=== PATIENT | male | born 1970 | race Caucasian/White ===

== ENCOUNTER 2017-10-19 12:42 | Outpatient (CLI) | payer BC, OTHER ==
--- NOTE | 2017-10-19 15:01 | CT ---
NONCONTRAST ENHANCED CT IMAGES ABDOMEN AND PELVIS: HISTORY: Patient with low abdominal pain, R10.30. FINDINGS: Noncontrast enhanced CT images of the abdomen and pelvis were obtained. There is a tiny approximately 3 mm nodular density seen in the right middle lobe of the lung base. The liver and spleen are unremarkable. The gallbladder and pancreas are unremarkable. Adrenal gland s unremarkable. There is minimal dilatation of the right ureter with an approximately 2 mm tiny uret eral calculus seen on coronal image #85. The lesion is difficult to visualize on the axial images. The left kidney and collecting system is unremarkable. There is an approximately 1.3 cm area of defect in the region of the umbilicus compatible with tiny u mbilical hernia. No evidence of small bowel herniation seen. Descending and sigmoid colonic diverticulosis is present. A normal appendix is seen. Multilevel lower lumbar degenerative changes seen. There is a subchondral cyst on the lateral aspect of the right acetabulum. IMPRESSION: Tiny approximately 2 mm mid right ureteral calculus. POS: [facility]
== END 2017-10-19 12:43 | disposition home or self-care (01) ==
LOC: CT 12:42
PROVIDERS: ATTEND Family Medicine
DX: R10.30 Lower abdominal pain, unspecified (principal)
CPT/HCPCS: 74176

== ENCOUNTER 2018-01-01 13:20 | Outpatient (CLI) | payer BC ==
[2018-01-01 14:10] LABS: #Basophils 0.1 thou/uL (0.0-0.2); #Eosinphils 0.1 thou/uL (0.0-0.7); #Monocytes 0.8 thou/uL (0.11-0.59); #Neutrophils 4.5 thou/uL (1.40-6.50); %Basophils 0.8 % (0.0-1.0); %Eosinophils 1.7 % (0.0-10.0); %Lymphocytes 35.1 % (21.0-51.0); %Monocytes 9.4 % (0.0-10.0); Hemoglobin 14.9 g/dL (14.0-18.0); Mean Corpuscular HGB CONC 35.1 g/dL (32.0-36.0); Mean Corpuscular Hemoglobin 31.4 pg (27.0-31.0); Mean Corpuscular Volume 89.2 fL (78.0-98.0); Mean Platelet Volume 6.5 fL (7.4-10.4); Platelet Count 253 thou/uL (130-400); RBC Distribution Width 11.3 % (11.5-14.5); Red Blood Cell (RBC) Count 4.77 mill/uL (4.70-6.10); White Blood Cell (WBC) Count 8.5 thou/uL (4.8-10.8)
[2018-01-01 14:45] LABS: ALT (SGPT) 13 U/L (8-55); AST (SGOT) 15 U/L (5-34); Albumin 4.5 g/dL (3.5-5.0); Alkaline Phosphatase 51 U/L (40-150); Anion Gap 13 mmol/L (10-20); BUN (Urea Nitrogen) 20 mg/dL (8.9-20.6); Bilirubin, Total 0.5 mg/dL (0.2-1.2); Calc. Creatinine Clearance 0 mL/min (70-130); Calcium 9.5 mg/dL (7.8-10.44); Carbon Dioxide 25 mmol/L (22-29); Chloride 107 mmol/L (98-107); Estimated GFR-MDRD 70; Globulin 2.1 g/dL (2.4-3.5); Glucose 89 mg/dL (70-105); Potassium 4.1 mmol/L (3.5-5.1); Protein, Total 6.6 g/dL (6.0-8.3); Sodium 141 mmol/L (136-145)
--- NOTE | 2018-01-01 16:32 | EKG ---
Test Reason : Blood Pressure : / mmHG Vent. Rate : 048 BPM Atrial Rate : 048 BPM P-R Int : 198 ms QRS Dur : 102 ms QT Int : 448 ms P-R-T Axes : 008 028 005 degrees QTc Int : 400 ms Marked sinus bradycardia Possible Anterior infarct , age undetermined Abnormal ECG No previous ECGs available Confirmed by MERYL NIEVES, DR. Black ([id number]) on 01/01/2018 4:31:49 PM Referred By: VALENCIA Confirmed By:DR. Wayne SHETH MD
== END 2018-01-01 13:21 | disposition home or self-care (01) ==
LOC: LABBT 13:20
PROVIDERS: ATTEND Surgery
DX: Z01.818 Encounter for other preprocedural examination (principal); K42.9 Umbilical hernia without obstruction or gangrene
CPT/HCPCS: 80053; 85025; 93005; 93010

== ENCOUNTER 2018-01-04 06:23 | Day surgery (SDC) | payer BC ==
[2018-01-01 13:19] VITALS: BMI 39.3
[2018-01-04] MEDS ORDERED: CEFAZOLIN/Water 2 GM/20 ML SYRINGE ONE (06:52)
[2018-01-04] MEDS ORDERED: Bupivacaine HCl 0.5%/Epinephrine 1:200,000/PF 30 ml Vial ONE (08:04)
[2018-01-04] MEDS ORDERED: Lidocaine 2% 10 ML INJ ONE (08:04)
[2018-01-04] MEDS ORDERED: Fentanyl 100 MCG/2 ML VIAL ONE ×2 (08:49→10:20)
[2018-01-04] MEDS ORDERED: Midazolam HCl 2 mg/2 ml Vial ONE (08:49)
--- NOTE | 2018-01-04 11:44 | OP ---
DATE OF PROCEDURE: 01/04/2018 PREOPERATIVE DIAGNOSIS: Umbilical hernia. SURGEON: Ghassan Gill M.D. PROCEDURE: Umbilical hernia repair with mesh. INDICATIONS: This is a 47-year-old male with a painful umbilical hernia. FINDINGS: 1.5 cm defect, 6.4 cm piece of mesh used. PROCEDURE IN DETAIL: After informed consent was obtained, the patient was taken to the operating lauren m and given general endotracheal anesthesia. He was placed in the supine position. The abdomen was prepped and draped in usual fashion. Local anesthesia infiltrated subcutaneously and deep, subumbili concetta incision was performed. The subcu divided sharply. The hernia sac was dissected from umbilical skin sharply down to the fascia circumferentially and removed. The contents were reduced and a 6.4 c m piece of Proceed mesh was hydrated, rolled, and inserted intra-abdominally. It was then unrolled a nd the tabs were sutured to the fascia with interrupted 0 Ethibond. Then the mesh was further secure d with another 0 Ethibond suture. Hemostasis assured with electrocautery. The skin was reapproximat ed to the base of this fascia with interrupted 3-0 Vicryl to restore umbilical contour and then the s kin closed with interrupted 4-0 Rapide. Steri-Strips applied. Sterile bandage applied. The patient tolerated the procedure well and was transferred to recovery in good condition. Sponge and needle c ount verified correct x2.
[2018-01-04] MEDS ORDERED: Atropine Sulfate 0.4 mg/1 ml Vial ONE (15:03)
[2018-01-04] MEDS ORDERED: Lidocaine 1% PF 5 ML VIAL ONE (15:03)
[2018-01-04] MEDS ORDERED: Glycopyrrolate 0.2 MG/ML 5 ML SYRINGE ONE (15:03)
[2018-01-04] MEDS ORDERED: PROPOFOL 200 MG/20 ML VIAL ONE (15:03)
== END 2018-01-04 12:35 | disposition home or self-care (01) ==
LOC: SDC 06:23
PROVIDERS: ATTEND Surgery
PROC: 0WUF0JZ Supplement Abdominal Wall with Synthetic Substitute, Open Approach (ICD-10-PCS; principal; 2018-01-04)
DX: K42.9 Umbilical hernia without obstruction or gangrene (principal); T81.89XA Other complications of procedures, not elsewhere classified, initial encounter; I10 Essential (primary) hypertension; I48.91 Unspecified atrial fibrillation; Z79.82 Long term (current) use of aspirin; Z79.899 Other long term (current) drug therapy
CPT/HCPCS: 96374; J0461; J0670; J2001; J2250; J2704; J3010